=== PATIENT | female | born 1940 | race Caucasian/White ===

== ENCOUNTER 2020-07-01 21:30 | Inpatient (IN) | payer MEDICARE, BC ==
--- NOTE | 2020-07-01 20:45 | NUR ---
PATIENT ARRIVED TO [facility] VIA WHEELCHAIR PER TOMY SIMON. DX: DEMENTIA WITH BEHAVIORAL DISTURBANCES. SHE IS 79 YEAR OLD CAUCASION FEMALE WHO IS CALM AND PLEASANT WITH CONFUSION NOTED. CODE STATUS= DNR CODE WORD= 0793. SHE AMBULATES WITH ASSISTANCE ONLY. GRANDDAUGHTER CALLED REGARDING ADMISSION AND HISTORY OBTAINED. SHE WAS GIVEN THE PATIENT'S CODE WORD. SHE IS INCONTINENT OF BLADDER BUT NOT BOWEL.
[2020-07-01] MEDS ORDERED: ARAVA10 MG PO (22:36)
[2020-07-01] MEDS ORDERED: CELEXA10 MG PO (22:37)
[2020-07-01] MEDS ORDERED: CENTRUM SILVER1 EAC3 (22:39)
[2020-07-01] MEDS ORDERED: PREVALITE POWD231 GM (22:40)
[2020-07-01] MEDS ORDERED: PLAVIX75 MG PO (22:45)
[2020-07-01] MEDS ORDERED: DONEPEZIL HCL10 MG PO (22:51)
[2020-07-01] MEDS ORDERED: REMERON15 MG PO (22:52)
[2020-07-01] MEDS ORDERED: MELATONIN 3 MG1 TAB PO (22:52)
[2020-07-01] MEDS ORDERED: K-DUR20 MEQ PO (22:53)
[2020-07-01] MEDS ORDERED: COLACE100 MG PO (22:54)
[2020-07-01] MEDS ORDERED: CRESTOR5 MG PO (22:54)
[2020-07-01] MEDS ORDERED: FUROSEMIDE20 MG (22:55)
[2020-07-01] MEDS ORDERED: NAMENDA5 MG PO (22:55)
[2020-07-01] MEDS ORDERED: METFORMIN HCL500 M1 (22:56)
[2020-07-01] MEDS ORDERED: ULTRAM50 MG PO (22:58)
[2020-07-01] MEDS ORDERED: KLONOPIN0.5 MG PO (22:59)
[2020-07-01 23:17] VITALS: BP 114/90
[2020-07-02 07:02] LABS: BASOPHILS 0.5 % (0-2); EOSINOPHILS 3.1 % (0-7); HEMATOCRIT 38.6 % (36.0-48.0); HEMOGLOBIN 12.8 g/dL (12-16); LYMPHOCYTES 22.9 % (15-50); MCH 28.6 pg (26.0-34.0); MCHC 33.2 g/dL (31.0-37.0); MCV 86.4 fL (80.0-100.0); MEAN PLATELET VOLUME 11.9 fL (7.4-10.4); MONOCYTES 8.4 % (2-11); NEUTROPHILS 65.1 % (40-80); PLATELET COUNT 185 10x3/uL (130-400); RBC 4.47 10x6/uL (4.00-5.40); WBC 5.7 10x3/uL (4.8-10.8)
[2020-07-02 07:37] LABS: ALBUMIN 3.2 g/dL (3.4-5.0); ANION GAP 11.2 mmol/L (8-16); BILIRUBIN - TOTAL 0.58 mg/dL (0.2-1.3); CALCIUM 8.8 mg/dL (8.5-10.1); CARBON DIOXIDE 31.9 mmol/L (21.0-32.0); CREATININE - SERUM 0.9 mg/dL (0.6-1.3); POTASSIUM - SERUM 3.1 mmol/L (3.5-5.1); PROTEIN - SERUM 5.5 g/dL (6.4-8.2); THYROID STIMULATING HORMONE 3.47 uIU/mL (0.36-3.74)
[2020-07-02 11:19] VITALS: BP 122/71
[2020-07-02 13:33] VITALS: Wt 83.2 kg
--- NOTE | 2020-07-02 14:26 | NUR ---
VERY CONFUSED AND ARGUMENTIVE.REFUSED ALL MEDS THIS AM EXCEPT FOR POTASSIUM.AMBULATED 20FEET WITH PHYSICAL THERAPY TODAY,PROPELLS SELF IN WHEELCHAIR.WILL CONTINUE WITH CURRENT PLAN OF CARE,MONITOR FOR CHANGES AND SAFETY.
[2020-07-02 20:09] VITALS: BP 102/60
--- NOTE | 2020-07-02 23:36 | NUR ---
B) Luis Armando is alert and oriented to person, very negative outlook, stated that she would take her medications but would probally anyway, I) Administered scheduled redirected as needed, R) Mediation compliant, quiet and keeps to herself P) Continue plan of care.
[2020-07-03 06:11] LABS: RAPID PLASMA REAGIN Non Reactive (Non Reactive)
--- NOTE | 2020-07-03 12:13 | NUR ---
The patient is so confused. She is tearful and she is crying. Asked her if she would like something to help her nerves she said "Yes, I think so." By the time this nurse got her an ativan 0.5 mg po and offered her a lemon bois forte drink she said she did not want a lemon bois forte, she also said "Well, too bad so sad, I'll leave it." Explained to her that "No, you can have a diet cola." She wanted to argue and then she refused to take her by mout ativan and slapped it out of the cup. Provided her ativan 0.5 mg IM in her right deltoid as she is getting anxious and irritable and demanding. She is telling staff that she is allergic to water and can not drink it. The patient want to goad staff into arguing. She was compliant with am meds and she self propels in a w/c. She has poor insight into her situation. She knows her name and where she is located. 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 Tried to explain that she should calm herself. She said "Well, I won't be calm with you around." Left from her presence so she can relax and let the ativan calm her. Continue POC.
--- NOTE | 2020-07-03 12:57 | PSY ---
PATIENT NAME:TIGIST BEE MEDICAL RECORD: [id number] : 42 LOCATION:[facility] ADMISSION DATE: 07/01/20 ACCOUNT: [id number] PSYCHIATRIC EVALUATION DATE OF EVALUATION: 07/02/20 IDENTIFYING DATA: The patient is 79 years old and she is admitted to the hospital on a voluntary basis. CHIEF COMPLAINT: Agitation. HISTORY OF PRESENT ILLNESS: The patient has a history of vascular dementia. She recently broke her hip and had surgery. Since then, her condition has worsened. She has been in the [facility] where she has been confused, agitated, and throwing things. She has been pulling out dresser drawers and throwing things on the floor. She flipped the bedside table over. She is very angry and uncooperative, but when I speak with her, she is clearly mad, but denies any behaviors. PAST MEDICAL HISTORY: Significant for diabetes, hypertension, atrial fibrillation, and hypothyroidism. PAST PSYCHIATRIC HISTORY: Significant for an established diagnosis of dementia. FAMILY HISTORY: Unknown. ALLERGIES: PENICILLIN. CURRENT MEDICATIONS: Include Celexa, Plavix, Aricept, melatonin, Remeron, Crestor, Colace, Namenda, Ultram and Klonopin. SOCIAL HISTORY: The patient does not drink or use recreational drugs. 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 She does have one son who is involved with her care. MENTAL STATUS EXAMINATION: The patient is awake, alert and oriented to person and place, but not to time or situation. Her mood is flat. Her affect is constricted. Thought processes are circumstantial. Memory, concentration, and abstraction abilities are impaired. She denies that she would seek to harm herself or others as well as psychotic symptoms. ASSESSMENT: AXIS I: Major vascular neurocognitive disorder. AXIS II: None. AXIS III: Recent hip fracture, hypertension, hyperlipidemia, diabetes, atrial fibrillation, chronic kidney disease, hypothyroidism, gastroesophageal reflux disease, cervical spine stenosis. AXIS IV: Moderate. AXIS V: Global assessment of functioning is 30. PLAN: At this time, the patient is admitted to the hospital secondary to agitated behavior at the [facility]. She will be comprehensively evaluated from both a medical, psychological, and social standpoint. She will be treated with mood stabilizing and memory enhancing medications as deemed appropriate. TRANSINT:[id number] Voice Confirmation ID: [id number] DOCUMENT ID: [id number] TAMI MANJARREZ MD at 1257 CC: [id number] DICTATION DATE: 07/02/20 1725 STILL OPERATOR BATCH OR CONTINUOUS: 07/02/20 2230 ADM IN [place] [id number] [place] [id number]
--- NOTE | 2020-07-03 13:11 | NUR ---
The patient is not showing anxiety at this time she is resting with her eyes closed in the day room.
--- NOTE | 2020-07-03 16:11 | NUR ---
The patient is tearful and she is labile in affect, she says she is nervous all the time and that I should be too. Asked her if she would like some bottled water from the kitchen as she told Marcy Adams APN that she wished she had her water from home. The patient said "No, I don't trust it unless it's from my house because I have seen the old switch a miriam." The patient declined the water, she wants diet coke only. She is very anxious, provided her ativan 0.5 mg po. Will monitor.
[2020-07-03 16:17] VITALS: BP 149/74
--- NOTE | 2020-07-03 17:00 | NUR ---
The patient is tearful and she is unhappy, but staff have offered her a blanket, offered her a recliner, but she is confused and sundowning. She is answering conversations that do not pertain to her. She said "I can't drive, so I don't know." Then she looks around suspiciously and mumbles some things.
--- NOTE | 2020-07-03 17:53 | NUR ---
The patient is in the day room and she is getting upset, she is getting nauseated and gagging. Took her into the dining room and provided her a cup to spit up in. She was not too keen that she did not have someone with her.
[2020-07-03 19:57] VITALS: BP 132/106
--- NOTE | 2020-07-03 22:49 | NUR ---
B.) PT IS ALERT AND ORIENTED TO SELF ONLY. SHE IS RECEIVED IN THE DAYROOM CRYING ABOUT NOT HAVING A CELL PHONE. SHE RELATES THAT NOONE KNOWS WHERE SHE IS AND SHE IS NEVER GOING TO LEAVE HERE. SHE IS SELF ISOLATING AND WITHDRAWN. I.) PROVIDED PM MEDICATIONS PRESCRIBED. REDIRECT OFTEN. R.) COMPLIANT WILL ALL MEDICATIONS. DIFFICULT TO REDIRECT. P.) WILL CONTINUE TO MONITOR.
[2020-07-04 10:10] VITALS: BP 128/65
--- NOTE | 2020-07-04 12:31 | NUR ---
The patient is very anxious and tearful, she interrupts others conversations to say things that are not pertinent to the conversation. Provided Ativan 0.5 mg and Haldol 2 mg po for anxiety. Also gave her a diet cola, but she took one sip and she said "What's that gree stuff in there?" She refused to drink it, she is paranoid and believes people are trying to harm her. She also refused to eat lunch. Continue POC.
--- NOTE | 2020-07-04 15:01 | NUR ---
The patient is continuing to have bizarre behavior. She is attention seeking, demanding, and intrusive, in addition to having poor insight to her situation, she can be terse, yvon, and rude. If staff provide her medication she says "Well, I guess I have to whether I like it or not, I just don't have a choice." The patient is in a w/c, she typically ambulates, but she is unsteady. She has not mastered self propelling yet in the w/c. Provide prescribed meds. The patient is compliant with meds. At this time she is sticking her fingers down her throat to make herself try to vomit. She is removed from the other patients and she is being watched to ensure she remains safe. Continue POC.
--- NOTE | 2020-07-04 15:44 | NUR ---
The patient is becoming anxious, she is tearful and unable to self propel so she is getting frustrated. Provided Ativan 0.5 mg and Haldol 2 mg po with a diet cola. Will monitor her behavior.
[2020-07-04 20:00] VITALS: BP 128/72
--- NOTE | 2020-07-04 21:26 | NUR ---
B.) PT IS ALERT AND ORIENTED TO SELF ONLY. SHE HAS POOR INSIGHT INTO HER SITUATION. SHE IS ANXIOUS AND RELATES THAT SHE IS CONCERNED THAT SHE COULDNT GET ADMITED TO THE HOSPITAL LAST NIGHT. SHE RELATES THAT SHE IS ALERGIC TO WATER. SHE IS DEMANDING AND NEEDY. I.) PROVIDED PM MEDICATIONS AND PRN ATIVAN 0.5 MG IM. REDIRECT OFTEN. R.) COMPLIANT WITH HER MEDICATIONS. DIFFICULT TO REDIRECT. P.) WILL CONTINUE TO MONITOR.
--- NOTE | 2020-07-04 22:45 | NUR ---
PT IS RESTING CALMLY IN HER BED WITH EYES CLOSED. NO DISTRESS NOTED. WILL CONTINUE TO MONITOR.
--- NOTE | 2020-07-04 23:42 | NUR ---
STAFF ALERTED NURSES TO DIARRHEA AND ALSO SOME ITEM FOUND IN PTS LOOSE STOOL. UNIDENTIFIED OBJECT. PT UNSURE WHAT IT IS. ADMINSTERED PRN IMODIUM. WILL CONTINUE TO MONITOR.
[2020-07-05 09:09] VITALS: BP 109/79
--- NOTE | 2020-07-05 11:07 | NUR ---
The patient is anxious, some of the other patients are too loud and she is tearful then she cries. She asked to go to the br to have a BM, took one time and she did not have a loose stool, but just now took her and she had a loose BM, provided ativan 0.5 mg po and Immodium, see MAR. Monitor behavior and bowel movements.
[2020-07-05 20:00] VITALS: BP 115/67
--- NOTE | 2020-07-05 20:01 | NUR ---
PT IS RESTLESS AND CONFUSED AT TIMES. DIFFICULT TO REDIRECT. ADMINISITERED PO ATIVAN FOR ANXIETY. WILL CONTINUE TO MONITOR.
--- NOTE | 2020-07-05 20:11 | NUR ---
RECEIVED IN DAYROOM. SITTING IN A CHAIR WITH PEERS AT HER SIDE. CALM AND COOPERATIVE WITH CARE AND ASSESSMENT. ENCOURAGE TO EXPRESS NEEDS. REDIRECT AND REORIENT NEEDED. CONTINUES TO SIT CALMLY IN DAYROOM. CONTINUE PLAN OF CARE.
--- NOTE | 2020-07-05 20:45 | NUR ---
PT IS SITTING CALMLY IN A GERICHAIR. NO DISTRESS NOTED. WILL CONTINUE TO MONITOR.
--- NOTE | 2020-07-05 22:30 | NUR ---
PT BITING, SCRATCHING AND SCREAMING AT STAFF. UNABLE TO REDIRECT. ADMINISTERED PRN HALDOL AND ATIVAN IM. WILL CONTINUE TO MONITOR.
[2020-07-06 02:52] LABS: NITRITE NEGATIVE (NEGATIVE)
[2020-07-06 02:53] LABS: BILIRUBIN NEGATIVE (NEGATIVE); KETONE NEGATIVE (NEGATIVE); UROBILINOGEN NORMAL (NORMAL)
[2020-07-06 02:55] LABS: BACTERIA FEW /hpf (NEGATIVE); EPITHELIAL CELLS 0-5 /hpf (0-5); WHITE CELLS - URINE 0-5 /hpf (NEGATIVE)
[2020-07-06 09:07] VITALS: BP 98/52
--- NOTE | 2020-07-06 14:31 | NUR ---
Nutrition Follow-up: Overall poor appetite/PO intake. Diet: Diabetic PO intake: 9% avg x 9 meals Wt: 176# (07/05); 176# (07/02) Last BM: 07/05 Labs noted: Glu 112 Meds noted: Imodium, KDur, Glucophage -Encourage PO intake and honor food preferences within diet restrictions. -+Glucerna with meals. -Monitor wt. -RD following.
--- NOTE | 2020-07-06 17:58 | NUR ---
PT IS AWAKE AND ALERT TO PERSON ONLY. ASSESSMENT COMPLETED. PRESCRIBED MEDS PROVIDED ORDERED. MED COMPLIANT. PT IS YELLING AT THIS TIME. REDIRECT AND REORIENT NEEDED. FALL PRECAUTIONS IN PLACE. WILL CPOC.
--- NOTE | 2020-07-06 19:55 | NUR ---
RECEIVED IN DAYROOM. SITTING IN A CHAIR WITH PEERS AT HER SIDE. CALM AND COOPERATIVE WITH CARE AND ASSESSMENT. CONFUSED. REDIRECT AND REORIENT NEEDED. CONTINUES TO SIT CALMLY IN DAYROOM. CONTINUE PLAN OF CARE.
[2020-07-06 20:12] VITALS: BP 124/55
--- NOTE | 2020-07-07 03:54 | NUR ---
TYLENOL 650 MG X 2 GIVEN PO FOR LEVEL #10 HIP PAIN.
[2020-07-07 09:45] VITALS: BP 147/69
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
[2020-07-07 12:17] LABS: BASOPHILS 0.2 % (0-2); EOSINOPHILS 1.3 % (0-7); HEMATOCRIT 45.2 % (36.0-48.0); HEMOGLOBIN 14.8 g/dL (12-16); IMMATURE GRANULOCYTES 0.2 % (0-5); LYMPHOCYTES 12.9 % (15-50); MCH 28.7 pg (26.0-34.0); MCHC 32.7 g/dL (31.0-37.0); MCV 87.6 fL (80.0-100.0); MEAN PLATELET VOLUME 11.8 fL (7.4-10.4); MONOCYTES 6.1 % (2-11); NEUTROPHILS 79.3 % (40-80); RBC 5.16 10x6/uL (4.00-5.40); RDW 14.6 % (11.5-14.5); WBC 12.5 10x3/uL (4.8-10.8)
[2020-07-07 12:18] LABS: PLATELET COUNT 269 10x3/uL (130-400)
--- NOTE | 2020-07-07 12:24 | NUR ---
PT REPORTED SORE THROAT AND BODY ACHES. COVID 19 ORDERED PER [facility] PT PLACED IN DROPLET ISOLATION PER [facility]. COVID TEST COLLECTED PER ORDER. RESULTS PENDING. PT RESTING IN BED WITH EYES OPEN. ASSESSMENT COMPLETED. PRESCRIBED MEDS PROVIDED ORDERED. PT REFUSED MORNING MEDS X 3. REDIRECT AND REORIENT NEEDED. PT CAN BE VERY AGGRESSIVE WITH STAFF UPON REDIRECTION AT TIMES. FALL PRECAUTIONS IN PLACE. STAFF PRESENT FOR SAFETY. WILL CPOC.
[2020-07-07 12:37] LABS: ALBUMIN 3.8 g/dL (3.4-5.0); ANION GAP 18.1 mmol/L (8-16); BILIRUBIN - TOTAL 0.87 mg/dL (0.2-1.3); CALCIUM 9.4 mg/dL (8.5-10.1); CARBON DIOXIDE 23.5 mmol/L (21.0-32.0); CREATININE - SERUM 1.3 mg/dL (0.6-1.3); POTASSIUM - SERUM 3.6 mmol/L (3.5-5.1); PROTEIN - SERUM 6.5 g/dL (6.4-8.2)
[2020-07-07 20:43] VITALS: BP 116/54
--- NOTE | 2020-07-08 01:40 | NUR ---
INCREASING ANXIETY, YELLING OUT. RESTLESS IN BED. PRN ATIVAN 0.5 MG IM GIVEN FOR ANXIETY.
--- NOTE | 2020-07-08 03:07 | NUR ---
CONTINUES TO YELL OUT AT TIMES.
--- NOTE | 2020-07-08 08:20 | NUR ---
REC'D PT IN ROOM RESTING IN RECLINING CHAIR. PT YELLS OUT FOR NO REASON. PT VERY DIFFICULT TO REDIRECT AT TIMES. PT CAN BECOME COMBATIVE WITH STAFF UPON REDIRECTION. ASSESSMENT COMPLETED. PT CONTINUED ON DROPLET ISOLATION FOR PENDING COVID RESULTS. STAFF PRESENT FOR SAFETY. REDIRECT AND REORIENT NEEDED. PRESCRIBED MEDS PROVIDED ORDERED. FALL PRECAUTIONS IN PLACE. WILL CPOC.
--- NOTE | 2020-07-08 14:35 | PN ---
PATIENT:TIGIST BEE MEDICAL RECORD: [id number] LOCATION:[facility] ADMISSION DATE: 07/01/20 PROGRESS NOTE DATE OF SERVICE: 07/07/2020 SUBJECTIVE: The patient's case was discussed with staff. She has no new complaint. OBJECTIVE: The patient is impaired cognitively, but her behaviors have been good. Unfortunately, she is not eating adequately, but she is also showing signs of a viral infection. ASSESSMENT: Dementia. PLAN: The patient is being isolated and COVID testing results are pending. At this point, I am just going to maintain her on her current medications and we will reassess the situation after the COVID results return. TRANSINT:[id number] Voice Confirmation ID: [id number] DOCUMENT ID: [id number] TAMI MANJARREZ MD at 1435 CC: [id number] DICTATION DATE: 07/07/20 1540 TRAVEL INFORMATION CENTER SUPERVISOR: 07/07/20 2352 ADM IN [place] [id number] [place] [id number]
--- NOTE | 2020-07-08 15:10 | NUR ---
NUTRITION FOLLOW UP: COMMENTS: Patient has been eating poorly with po intake of 0% for 8 of the last 9 meals. DIET: Diabetic Diet SUPPLEMENT: Glucerna with meals PO INTAKE: 6% avg for last 9 meals WEIGHT: 07/05- 176 lbs BM: x 1 on 07/07 SIG MEDS: Imodium, Humalog, Crestor SIG LABS: BUN-25(H), POC Glucose- 135, 119, 112, 132 RECOMMENDATIONS -Continue DM diet as tolerated -Continue Glucerna with meals -Recommend appetite stimulant if poor po intake and appetite continues RD to continue to follow and monitor patient DHS
--- NOTE | 2020-07-08 20:00 | NUR ---
RECEIVED IN DAYROOM, RESTING IN RECLINER. CONTINUES TO BE RESTLESS AND ANXIOUS, CRIES AND MOANS OUT. SHE IS STILL VERY CONFUSED. CALM AND COOPERATIVE WITH CARE AND ASSESSMENT. REDIRECT AND REORIENT NEEDED. ADMINISTERED SCHEDULED MEDICATIONS. COMPLIANT WITH MEDICATIONS. CONTINUE POC.
[2020-07-08 20:37] VITALS: BP 127/67
[2020-07-09 09:22] VITALS: BP 127/56
[2020-07-09 10:24] LABS: BASOPHILS 0.2 % (0-2); EOSINOPHILS 0.7 % (0-7); HEMATOCRIT 39.6 % (36.0-48.0); HEMOGLOBIN 12.8 g/dL (12-16); IMMATURE GRANULOCYTES 0.2 % (0-5); LYMPHOCYTES 8.9 % (15-50); MCH 28.5 pg (26.0-34.0); MCHC 32.3 g/dL (31.0-37.0); MCV 88.2 fL (80.0-100.0); MEAN PLATELET VOLUME 11.9 fL (7.4-10.4); MONOCYTES 7.7 % (2-11); NEUTROPHILS 82.3 % (40-80); RBC 4.49 10x6/uL (4.00-5.40); RDW 14.6 % (11.5-14.5)
[2020-07-09 10:29] LABS: PLATELET COUNT 168 10x3/uL (130-400)
--- NOTE | 2020-07-09 12:16 | PN ---
PATIENT:TIGIST BEE MEDICAL RECORD: [id number] LOCATION:[facility] ADMISSION DATE: 07/01/20 PROGRESS NOTE DATE OF SERVICE: 07/08/2020 SUBJECTIVE: The patient's case was discussed with staff. She has no new complaint. OBJECTIVE: The patient is tearful for reasons that are unclear. She is frightened and upset. She is not having any suicidal thoughts, but she is displaying a high degree of distress with a low degree of specificity. She did require an injection last night because of her anxiety. I am going to change her from Zyprexa to Seroquel and will give her scheduled doses of this to assist with her distress. TRANSINT:[id number] Voice Confirmation ID: [id number] DOCUMENT ID: [id number] TAMI MANJARREZ MD at 1216 CC: [id number] DICTATION DATE: 07/08/20 1515 TOOL ANALYST: 07/09/20 0029 ADM IN [place] [id number] [place] [address]
--- NOTE | 2020-07-09 17:05 | PN ---
PATIENT:TIGIST BEE MEDICAL RECORD: [id number] LOCATION:[facility] ADMISSION DATE: 07/01/20 PROGRESS NOTE DATE OF SERVICE: 07/09/2020 SUBJECTIVE: The patient's case was discussed with staff. She has no new complaint. OBJECTIVE: The patient denies that she would seek to harm herself or others. She is partially oriented. ASSESSMENT: Dementia. PLAN: The patient is calmer today. I will observe her dose of Seroquel to ensure that she does not become oversedated, but so far it seems to be working well. TRANSINT:[id number] Voice Confirmation ID: [id number] DOCUMENT ID: [id number] TAMI MANJARREZ MD at 1705 CC: [id number] DICTATION DATE: 07/09/20 1251 CHIEF INFORMATION OFFICER: 07/09/20 1625 ADM IN [place] [id number] [place] [id number]
[2020-07-09 20:32] VITALS: BP 124/55
--- NOTE | 2020-07-09 22:17 | NUR ---
RECEIVED PATIENT IN DAYROOM, SITTING TO HERSELF, SHE IS VERY CONFUSED, ABLE TO STATE ALL OF HER NEEDS AND CONCERNS, COMPLIANT WITH MEDS, NO ADVERSE REACTION OR SIDE EFFECTS NOTED FROM MEDS. WILL FOLLOW POC
[2020-07-10 08:52] VITALS: BP 142/77
--- NOTE | 2020-07-10 10:02 | NUR ---
PT SITTING IN CHAIR IN DAYROOM AT THIS TIME. PT IS ALERT AND ORIENTED. DENIES SI AT THIS TIME. PT IS COMPLIANT WITH MEDS, VITALS AND ASSESSMENTS. PT ANXIOUS AT TIMES. PT TENDS TO ISOLATE SELF AT TIMES. PT CAN MAKE NEEDS KNOWN. PT IS INDEPENDENT WITH ADLS. WILL CONT PLAN OF CARE.
[2020-07-10 20:00] VITALS: BP 118/56
--- NOTE | 2020-07-10 20:16 | NUR ---
RECEIVED PATIENT IN DAYROOM SITTING IN WHEELCHAIR CALMLY, SHE IS CONFUSED ALWAYS, SHE IS COMPLIANT WITH HER MEDS, SHE CAN MAKE NEEDS KNOWN, NO ADVERSE REACTION NOTED TO MEDS OR SIDE EFFECTS. WILL FOLLOW POC
[2020-07-11 09:12] VITALS: BP 134/74
--- NOTE | 2020-07-11 16:18 | NUR ---
RECEIVED THIS AM IN RECLINER.IS ORIENTED TO SELF.VERY POOR SHORT TERM MEMORY. COMPLIANT WITH STAFF AND MEDS.REQUIRES ASSIST WITH BATHROOM NEEDS AND DRESSING.WILL CONTINUE WITH CURRENT PLAN OF CARE,MONITOR FOR CHANGES AND SAFETY.
[2020-07-11 19:34] VITALS: BP 122/50
--- NOTE | 2020-07-11 19:55 | NUR ---
RECEIVED PATIENT IN DAYROOM, CALM, CONFUSED, SHE HAS BEEN CONFUSED. SHE CAN MAKE HER NEEDS KNOWN. SHE IS LABILE. WILL FOLLOW POC
[2020-07-12 09:28] VITALS: BP 146/83
--- NOTE | 2020-07-12 12:00 | NUR ---
RECEIVED IN HALLWAY OUTSIDE OF NURSES STATION. CALM AND COOPERATIVE WITH CARE AND ASSESSMENT. NO AGGRESSION. REDIRECT AND REORIENT NEEDED. EATING AT THIS TIME. CONTINUE PLAN OF CARE.
[2020-07-12 18:57] VITALS: BP 141/74
--- NOTE | 2020-07-12 19:43 | NUR ---
RECEIVED IN BEDROOM. RESTING IN BED WITH EYES CLOSED. CALM AND COOPERATIVE WITH CARE AND ASSESSMENT. NO SIGNS OF AGGRESSION. REDIRECT AND REORIENT NEEDED. RESTING IN BED WITH EYES CLOSED AT THIS TIME. CONTINUE PLAN OF CARE.
[2020-07-13 08:34] VITALS: BP 150/87
--- NOTE | 2020-07-13 15:23 | NUR ---
RECEIVED IN HALLWAY OUTSIDE OF NURSES STATION. CALM AND COOPERATIVE WITH CARE AND ASSESSMENT. NO AGGRESSIVE BEHAVIOR. REDIRECT AND REORIENT NEEDED. PARTICIPATING IN GROUP AT THIS TIME. CONTINUE PLAN OF CARE.
[2020-07-13 19:39] VITALS: BP 139/59
--- NOTE | 2020-07-13 19:45 | NUR ---
RECEIVED IN DAYROOM. SITTING IN A CHAIR WITH PEERS AT HER SIDE. NO SIGNS OF AGGRESSION OR PARANOIA. CALM AND COOPERATIVE WITH CARE AND ASSESSMENT. REDIRECT AND REORIENT NEEDED. CONTINUES TO SIT CALMLY IN DAYROOM. CONTINUE PLAN OF CARE.
--- NOTE | 2020-07-13 20:08 | PN ---
PATIENT:TIGIST BEE MEDICAL RECORD: [id number] LOCATION:[facility] ADMISSION DATE: 07/01/20 PROGRESS NOTE DATE OF SERVICE: 07/13/2020 SUBJECTIVE: The patient's case was discussed with staff. She has no new complaint. OBJECTIVE: The patient is in good behavioral control. She has poor insight about her situation. She does tolerate her medicines well. ASSESSMENT: Dementia. PLAN: Current medicines have been reviewed and will be maintained. Long-term prognosis is guarded. I anticipate she can be transitioned out of the hospital soon. TRANSINT:[id number] Voice Confirmation ID: [id number] DOCUMENT ID: [id number] TAMI MANJARREZ MD at 2008 CC: [id number] DICTATION DATE: 07/13/20 1500 CHIEF MEDICAL TECHNOLOGIST: 07/13/20 1652 ADM IN [place] [id number] [place] [address]
[2020-07-14 09:30] VITALS: BP 131/83
--- NOTE | 2020-07-14 12:00 | NUR ---
RECEIVED IN HALLWAY OUTSIDE OF NURSES STATION. CALM AND COOPERATIVE WITH CARE AND ASSESSMENT. NO AGGRESSIVE BEHAVIOR. NO PARANOIA. REDIRECT AND REORIENT NEEDED. EATING AT THIS TIME. CONTINUE PLAN OF CARE.
--- NOTE | 2020-07-14 20:54 | NUR ---
RECEIVED IN DAYROOM. SITTING IN A CHAIR WITH PEERS AT HER SIDE. CALM AND COOPERATIVE WITH CARE AND ASSESSMENT. NO SIGNS OF AGGRESSION AT THIS TIME. REDIRECT AND REORIENT NEEDED. CONTINUES TO SIT CALMLY IN DAYROOM. CONTINUE PLAN OF CARE.
[2020-07-14 21:55] VITALS: BP 148/55
--- NOTE | 2020-07-15 08:33 | PN ---
PATIENT:TIGIST BEE MEDICAL RECORD: [id number] LOCATION:[facility] ADMISSION DATE: 07/01/20 PROGRESS NOTE DATE OF SERVICE: 07/14/2020 SUBJECTIVE: The patient's case was discussed with staff. She has no new complaint. OBJECTIVE: The patient is in good behavioral control with no disruptive behaviors today. She is eating and sleeping well. ASSESSMENT: Dementia. PLAN: If this level of improvement continues, I anticipate she can be transitioned out of the hospital soon. TRANSINT:[id number] Voice Confirmation ID: [id number] DOCUMENT ID: [id number] TAMI MANJARREZ MD at 0833 CC: [id number] DICTATION DATE: 07/14/20 1521 CHILDREN'S ATTENDANT: 07/15/20 0148 ADM IN [place] [id number] [place] [address]
[2020-07-15 10:30] VITALS: BP 140/62
--- NOTE | 2020-07-15 14:51 | NUR ---
Nutrition Follow-up: Diet: Regular + Glucerna TID PO intake: ~79% average x last 9 meals Last BM: 07/15/20. Wt: 180# (07/12/20); Admit Wt: 176# (07/02/20) Meds noted: micro-K, SSI. Labs noted: POC Glu 168(H) Chart reviewed. Noted Diabetic diet was "canceled as per physician" and replaced by a Regular diet on 07/11/20. Continue PO diet per MD. Recommend continue Glucerna TID. RD following.
--- NOTE | 2020-07-15 17:49 | NUR ---
ORIENTED TO PERSON.COMPLIANT WITH STAFF AND MEDS.PROPELLS SELF IN WHEELCHAIR.NO AGGRESSION OBSERVED BUT IS VERY CONFUSED.WIILL CONTINUE WITH CURRENT PLAN OF CARE,MONITOR FOR CHANGES AND SAFETY.
--- NOTE | 2020-07-15 18:10 | NUR ---
SPOKE WITH PTS . PASSCODE GIVEN. HE WANTED TO KNOW HOW SHE WAS DOING AND IF HE COULD COME VISIT OR WOULD IT UPSET HER. NURSE TOLD HIM SHE WAS DOING OKAY STILL CONFUSED. NURSE RECOMMANDED THAT HE CALL BEFORE HE VISITS SO HE COULD SEE WHAT KIND OF MOOD SHE WAS IN. HE VERBALIZED UNDERSTANDING.
[2020-07-15 20:38] VITALS: BP 136/69
--- NOTE | 2020-07-15 21:44 | NUR ---
RECEIVED PATIENT IN DAYROOM, TALKING ON PHONE, CONFUSED, COMPLIANT WITH MEDS, NEEDS MOD ASSIST GETTING INTO BED. PLEASANT, WILL FOLLOW POC
[2020-07-16 08:16] VITALS: BP 160/86
--- NOTE | 2020-07-16 15:23 | PN ---
PATIENT:TIGIST BEE MEDICAL RECORD: [id number] LOCATION:[facility] ADMISSION DATE: 07/01/20 PROGRESS NOTE DATE OF SERVICE: 07/15/2020 SUBJECTIVE: The patient's case was discussed with staff. She has no new complaint. OBJECTIVE: The patient is not sleeping well. She has been very tearful. She has had no significant agitation. ASSESSMENT: No change in diagnoses. PLAN: The patient is going to be treated with a low dose of Klonopin to assist with her anxiety. I will increase the dose of her Zoloft as well. TRANSINT:[id number] Voice Confirmation ID: [id number] DOCUMENT ID: [id number] TAMI MANJARREZ MD at 1523 CC: [id number] DICTATION DATE: 07/15/20 1631 REIMBURSEMENT REP: 07/16/20 [id number] ADM IN [facility] [address] [place] [address]
--- NOTE | 2020-07-16 17:01 | NUR ---
ORIENTED TO SELF ONLY,VERY CONFUSED.COMPLIANT WITH STAFF AND MEDS.PROPELLS SELF IN WHEELCHAIR.WILL CONTINUE WITH CURRENT PLAN OF CARE,MONITOR FOR CHANGES AND SAFETY.
[2020-07-16 19:38] VITALS: BP 106/50
--- NOTE | 2020-07-17 00:28 | NUR ---
B) Patient is alert and oriented to self, very confused, I) Administered cheduled medications as ordered, monitored for safety and changes, R) Mediation compliant, resting quietly P) Continue plan of care.
--- NOTE | 2020-07-17 07:34 | NUR ---
The patient is sleeping this am, she is pleasant and calm. She is in a w/c and she can stand and transfer with assist. She has poor short term memory recall, and poor insight into her situation. Provide prescribed meds. The patient is compliant with meds. Continue POC.
--- NOTE | 2020-07-17 12:30 | PN ---
PATIENT:TIGIST BEE MEDICAL RECORD: [id number] LOCATION:[facility] ADMISSION DATE: 07/01/20 PROGRESS NOTE DATE OF SERVICE: 07/16/2020 SUBJECTIVE: The patient's case was discussed with staff. She has no new complaint. OBJECTIVE: The patient denies that she would seek to harm herself or others. She has been calm and cooperative. The Klonopin seems to have helped with her agitation. NTS:[id number] Voice Confirmation ID: [id number] DOCUMENT ID: [id number] TAMI MANJARREZ MD at 1230 CC: [id number] DICTATION DATE: 07/16/20 1620 WOOD FILLER: 07/16/202011 ADM IN [facility] [address] [place] [address]
[2020-07-17 12:44] VITALS: BP 149/73
[2020-07-17 20:00] VITALS: BP 144/64
--- NOTE | 2020-07-18 04:27 | NUR ---
B.) PT IS ALERT AND ORIENTED TO SELF AND AT TIMES PLACE. SHE HAS POOR INSIGHT INTO HER SITUATION. SHE RELATED TO ME THAT SHE IS JUST WAITING FOR HER TO PICK HER UP IN THE MORNING. SHE IS DEMANDING AT TIMES AND TEARFUL WHEN PEERS ARE AROUND. I.) PROVIDED PM MEDICATIONS PRESCRIBED. REDIRECT NEEDED. R.) COMPLIANT WITH ALL MEDICATIONS. EASY TO REDIRECT. P.) WILL CONTINUE TO MONITOR.
--- NOTE | 2020-07-18 08:49 | PN ---
PATIENT:TIGIST BEE MEDICAL RECORD: [id number] LOCATION:[facility] ADMISSION DATE: 07/01/20 PROGRESS NOTE DATE OF SERVICE: 07/17/2020 SUBJECTIVE: The patient's case was discussed with staff. She has no new complaint. OBJECTIVE: The patient is in good behavioral control and is showing no disruptive behaviors. Her cognition is significantly impaired. ASSESSMENT: Dementia. PLAN: The patient's Klonopin will be reduced to 0.25 mg twice daily. TRANSINT:[id number] Voice Confirmation ID: [id number] DOCUMENT ID: [id number] TAMI MANJARREZ MD at 0849 CC: [id number] DICTATION DATE: 07/17/20 1412 AUTOMOBILE REPAIR SERVICE ESTIMATOR: 07/17/20 2350 ADM IN [place] [id number]
--- NOTE | 2020-07-18 15:38 | NUR ---
The patient is a little confused today, she thought she knew another ladt from [place], but the lady is from [place], she then said she knew my sister and family, but we are not from here either. Provide prescribed meds. The patient is compliant with meds. She has poor short term memory recall and poor insight into her situation. She is not walking, she is using her w/c, but she can stand and help staff with transfers, no SI or HI. Continue POC.
[2020-07-18 19:57] VITALS: BP 115/67
--- NOTE | 2020-07-19 00:12 | NUR ---
B.) PT IS ALERT AND ORIENTED TO SELF ONLY. SHE IS CALM AND COOPERATIVE WITH STAFF. SHE IS INTERACTIVE AND RELATES THAT SHE MISSES HER GRANDCHILDREN DEARLY. SHE IS ABLE TO RECALL VERY IMPORTANT DETAILS OF HER GRANDCHILDREN. SHE USES A WHEEL CHAIR TO ASSIST WITH AMBULATION. I.) PROVIDED PM MEDICATIONS. REDIRECT NEEDED. R.) COMPLIANT WITH ALL MEDICATIONS. EASY TO REDIRECT, P.) WILL CONTINUE TO MONITOR.
--- NOTE | 2020-07-19 08:30 | NUR ---
The patient is pleasant, she is confused, she continues to call staff and patients by names that are not theirs, she believes she knows the people that she grew up with or that she went to school with she also believes she went to hindu with them. She is calm and cooperative, she has poor short term memory recall, she has poor insight into her situation. She can stand and help staff with transfers, but she is refusing to walk as she says she is too weak and she has requested to get PT also c/o yeast to her [place] area, will discuss with the today. She self propels in a w/c. Provide prescribed meds. The patient is compliant with meds. Continue POC.
[2020-07-19 10:15] VITALS: BP 153/85
--- NOTE | 2020-07-19 11:59 | PN ---
PATIENT:TIGIST BEE MEDICAL RECORD: [id number] LOCATION:[facility] ADMISSION DATE: 07/01/20 PROGRESS NOTE DATE OF SERVICE: 07/18/2020 SUBJECTIVE: The patient's case was discussed with staff. She has no new complaint. OBJECTIVE: The patient is impaired cognitively, but has had no paranoia or aggressive behavior. ASSESSMENT: Dementia. PLAN: With this level of improvement, continues transition the patient out of the hospital on Monday. TRANSINT:[id number] Voice Confirmation ID: [id number] DOCUMENT ID: [id number] TAMI MANJARREZ MD at 1159 CC: [id number] DICTATION DATE: 07/18/20 1445 CREDIT ASSISTANT: 07/18/20 2221 ADM IN [place] [id number] [place] [address]
[2020-07-19] MEDS ORDERED: FEXOFENADINE H180 MG PO (13:19)
[2020-07-19] MEDS ORDERED: LISINOPRIL5 MG PO (13:19)
[2020-07-19] MEDS ORDERED: ACETAMINOPHEN325 MG PO (13:19)
[2020-07-19] MEDS ORDERED: ELIQUIS2.5 MG PO (13:19)
[2020-07-19] MEDS ORDERED: DESERYL PO (13:20)
[2020-07-19] MEDS ORDERED: SEROQUEL25 MG PO ×2 (13:20)
[2020-07-19] MEDS ORDERED: ZOLOFT100 MG PO (13:20)
[2020-07-19] MEDS ORDERED: K-TAB10 MEQ PO (13:21)
[2020-07-19] MEDS ORDERED: KLONOPIN0.5 MG PO (13:21)
[2020-07-19] MEDS ORDERED: LIDODERM 5 %1 PATCH TRANSDERM (13:22)
[2020-07-19] MEDS ORDERED: FLUTICASONE PRO16 GM NASAL (13:22)
[2020-07-19] MEDS ORDERED: GYNE-LOTRIMIN-745 GM VG (13:22)
[2020-07-19] MEDS ORDERED: REMOVE PATCH TD (13:23)
--- NOTE | 2020-07-19 18:32 | NUR ---
The patient is anxious and she is very upset. She keeps saying "I am not taking a bath today, it will be number seven if I take another one." She is saying she wants to leave and we need to call the police. She has tried the doors and screamed. Ativan 0.5 mg IM provided, see MAR.
--- NOTE | 2020-07-19 20:13 | NUR ---
RECEIVED IN DAYROOM. SITTING IN A CHAIR WITH PEERS AT HER SIDE. CALM AND COOPERATIVE WITH CARE AND ASSESSMENT. NO SIGNS OF AGGRESSION. REDIRECT AND REORIENT NEEDED. CONTINUES TO SIT CALMLY IN DAYROOM. CONTINUE PLAN OF CARE.
[2020-07-19 20:41] VITALS: BP 143/78
--- NOTE | 2020-07-20 09:00 | PN ---
PATIENT:TIGIST BEE MEDICAL RECORD: [id number] LOCATION:[facility] ADMISSION DATE: 07/01/20 PROGRESS NOTE DATE OF SERVICE: 07/19/2020 SUBJECTIVE: The patient's case was discussed with staff. She has no new complaint. OBJECTIVE: The patient is in good behavioral control and has shown significant improvement. ASSESSMENT: Dementia. PLAN: The patient will be transitioned out of the hospital tomorrow and back to the [facility]. TRANSINT:[id number] Voice Confirmation ID: [id number] DOCUMENT ID: [id number] TAMI MANJARREZ MD at 0900 CC: [id number] DICTATION DATE: 07/19/20 1318 CLINICAL INFORMATICS STRATEGIST: 07/19/20 2142 ADM IN [place] [id number] [place] [address]
[2020-07-20 09:47] VITALS: BP 123/75
--- NOTE | 2020-07-20 15:49 | NUR ---
PT IS AWAKE AND ALERT TO PERSON ONLY. CALM AND COOPERATIVE WITH ASSESSMENT. PRESCRIBED MEDS PROVIDED ORDERED. MED COMPLIANT. NO BEHAVIORS NOTED. FALL PRECAUTIONS IN PLACE. WILL CPOC.
--- NOTE | 2020-07-20 19:17 | NUR ---
RECEIVED IN DAYROOM, MOVING ABOUT IN A WHEELCHAIR. CONFUSED. DEMANDING THAT SOMEONE TAKES HER HOME. NOTED ANXIETY. NO SIGNS OF AGGRESSION. REDIRECT AND REORIENT NEEDED. CONTINUES TO HAVE ANXIETY. CONTINUE PLAN OF CARE.
[2020-07-20 20:02] VITALS: BP 143/80
[2020-07-21 08:30] VITALS: BP 163/91
--- NOTE | 2020-07-21 11:11 | PN ---
PATIENT:TIGIST BEE MEDICAL RECORD: [id number] LOCATION:[facility] ADMISSION DATE: 07/01/20 PROGRESS NOTE DATE OF SERVICE: 07/20/2020 SUBJECTIVE: The patient's case was discussed with staff. She has no new complaint. OBJECTIVE: The patient has no aggressive behaviors or paranoia. She is very impaired cognitively. ASSESSMENT: Dementia. PLAN: The patient can be transitioned out of the hospital soon. I know arrangements need to be made for her to return to the prison in [place]. TRANSINT:[id number] Voice Confirmation ID: [id number] DOCUMENT ID: [id number] TAMI MANJARREZ MD at 1111 CC: [id number] DICTATION DATE: 07/20/20 1614 ASSEMBLY DETAILER: 07/21/20 0312 ADM IN [place] [id number] [place] [address]
--- NOTE | 2020-07-21 13:21 | NUR ---
PT IS SITTING ON COUCH SOCIALIZING WITH PEERS. ASSESSMENT COMPLETED. NO BEHAVIORS NOTED AT THIS TIME. PRESCRIBED MEDS PROVIDED ORDERED. MED COMPLIANT. REDIRECT AND REORIENT NEEDED. WILL CPOC.
--- NOTE | 2020-07-21 20:01 | NUR ---
RECEIVED IN DAYROOM. SITTING ON THE SOFA WITH PEERS AT HER SIDE. SOCIAL AT TIMES. CALM AND COOPERATIVE WITH CARE AND ASSESSMENT. NO SIGNS OF AGGRESSION OR PARANOIA. REDIRECT AND REORIENT NEEDED. CONTINUES TO SIT CALMLY IN DAYROOM. CONTINUE PLAN OF CARE.
[2020-07-21 20:20] VITALS: BP 132/60
--- NOTE | 2020-07-22 08:57 | PN ---
PATIENT:TIGIST BEE MEDICAL RECORD: [id number] LOCATION:[facility] ADMISSION DATE: 07/01/20 PROGRESS NOTE DATE OF SERVICE: 07/21/2020 SUBJECTIVE: The patient's case was discussed with staff. She has no new complaint. OBJECTIVE: The patient has evidence of significant confusion, but no evidence of acute or direct dangerousness or psychotic symptoms. ASSESSMENT: Dementia. PLAN: The patient will be transitioned out of the hospital as soon as placement can be arranged. TRANSINT:[id number] Voice Confirmation ID: [id number] DOCUMENT ID: [id number] TAMI MANJARREZ MD at 0857 CC: [id number] DICTATION DATE: 07/21/20 1517 EDGE BONDER: 07/21/20 2214 ADM IN [place] [id number] [place] [address]
--- NOTE | 2020-07-22 10:28 | NUR ---
PT IS AWAKE AND ALERT TO PERSON ONLY. CALM AND COOPERATIVE WITH ASSESSMENT. PRESCRIBED MEDS PROVIDED ORDERED. MED COMPLIANT. NO BEHAVIORS NOTED AT THIS TIME. REDIRECT AND REORIENT NEEDED. FALL PRECAUTIONS IN PLACE. WILL CPOC.
[2020-07-22 13:17] VITALS: BP 184/94
--- NOTE | 2020-07-22 13:50 | NUR ---
Nutrition Follow-up: Diet: Regular + Glucerna TID PO intake: ~85% average x last 9 meals Last BM: 07/22/20. Wt: 183# (07/19/20); Admit Wt: 176# (07/02/20) Meds noted: metformin, micro-k, SSI. Labs noted: POC Glu 145(H). Continue PO diet per MD. ESCOBAR following.
[2020-07-22 20:19] VITALS: BP 165/72
--- NOTE | 2020-07-23 02:39 | NUR ---
B.) PT IS ALERT AND ORIENTED TO SELF ONLY. SHE HAS POOR INSIGHT INTO HER SITUATION. SHE IS RECEIVED IN THE DAYROOM. SHE IS WITHDRAWN AT TIMES AND OBSERVED BEING TEARFUL WITH STAFF. SHE IS DEMANDING AND YELLING AT STAFF. SHE IS USING A WHEELCHAIR TO ASSIST WITH AMBULATION. I.) PROVIDED PM MEDICATIONS PRESCRIBED. REDIRECT OFTEN. R.) COMPLIANT WITH ALL MEDICATIONS. EASY TO REDIRECT. P.) WILL CONTINUE TO MONITOR.
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
[2020-07-23 09:39] VITALS: BP 175/107
--- NOTE | 2020-07-23 10:18 | PN ---
PATIENT:TIGIST BEE MEDICAL RECORD: [id number] LOCATION:[facility] ADMISSION DATE: 07/01/20 PROGRESS NOTE DATE OF SERVICE: 07/22/2020 SUBJECTIVE: The patient's case was discussed with staff. She has no new complaint. OBJECTIVE: The patient is in good behavioral control and has no disruptive behaviors that are noted. ASSESSMENT: Dementia. PLAN: The patient will be maintained on current medications, which have been reviewed. Her long-term prognosis is guarded. She may be transitioned out of the hospital as soon as arrangements are made. TRANSINT:[id number] Voice Confirmation ID: [id number] DOCUMENT ID: [id number] TAMI MANJARREZ MD at 1018 CC: [id number] DICTATION DATE: 07/22/20 1558 LATHMAKER: 07/22/202025 ADM IN [place] [id number] [place] [address]
[2020-07-23 20:07] VITALS: BP 150/68
--- NOTE | 2020-07-23 21:55 | NUR ---
RECEIVED PATIENT IN DAYROOM, SHE IS CONFUSED, LITTLE AGITATED BY THE NOISE IN THE DAYROOM, COMPLIANT WITH MEDS, SHE THINKS THAT SHE IN NOT IN A HOSPITAL RIGHT NOW AND THAT SHE IS WAITING FOR HER TO COME AND GET HER. SHE CAN MAKE HER NEEDS KNOWN. WILL FOLLOW POC
[2020-07-24 09:00] VITALS: BP 167/76
--- NOTE | 2020-07-24 11:00 | NUR ---
Obtained a specimen for COVID, sent to lab.
--- NOTE | 2020-07-24 12:29 | NUR ---
The patient is awake and alert, she has poor short term memory recall and poor insight into her situation. She says she is not able to walk, but staff are encouraging her to walk with assist. She says her legs buckle. Provide prescribed meds. The patient is compliant with meds. She has sat on the couch today and has fallen asleep. She says she does not sleep at night. She denies S.I., and H.I. Continue POC.
[2020-07-24 20:00] VITALS: BP 140/53
--- NOTE | 2020-07-24 22:08 | NUR ---
RECEIVED PATIENT IN DAYROOM, SITTING BESIDE OTHER PATIENTS, SHE IS CONFUSED, COMPLIANT WITH MEDS. COMPLIANT WITH MEDS, NO ADVERSE REACTIONS NOTED. MIN TO MOD CARE REQUIRED. WILL FOLLOW POC
[2020-07-25 09:18] VITALS: BP 143/92
--- NOTE | 2020-07-25 12:00 | NUR ---
RECEIVED IN HALLWAY OUTSIDE OF NURSES STATION. CALM AND COOPERATIVE WITH CARE AND ASSESSMENT. NO AGGRESSIONS. NO PARANOIA OR HALLUCINATIONS. REDIRECT AND REORIENT NEEDED. EATING AT THIS TIME. CONTINUE PLAN OF CARE.
--- NOTE | 2020-07-25 19:36 | NUR ---
pt speaking with family on phone stating she has not eaten, the shower is cold, she cant walk and has not obtained physical therapy. pt is confused and disoriented.
[2020-07-25 21:28] VITALS: BP 160/72
--- NOTE | 2020-07-25 21:41 | NUR ---
RECEIVED PATIENT IN DAYROOM SITTING ON COUCH, SHE IS NOT CONVERSATING WITH ANYONE, SHE NORMALLY DOES NOT (MINIMALLY) SHE IS CONFUSED, SHE DOES NOT REALIZE THAT SHE IS IN A HOSPITAL, SHE THINKS THAT SHE IS WAITING ON HER TO COME AND GET HER SHE ALSO THOUGHT THIS LAST NIGHT WELL. SHE IS COMPLIANT WITH MEDS. SHE CAN MAKE HER NEEDS KNOWN. WILL FOLLOW POC
[2020-07-26 08:53] VITALS: BP 159/87
--- NOTE | 2020-07-26 12:00 | NUR ---
RECEIVED IN HALLWAY OUTSIDE OF NURSES STATION. CALM AND COOPERATIVE WITH CARE AND ASSESSMENT. RESTLESS, ANXIOUS, AND CRIES AT TIMES. NO PARANOIA. NO AGGRESSION. REDIRECT AND REORIENT NEEDED. EATING AT THIS TIME. CONTINUE PLAN OF CARE.
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
[2020-07-26 20:03] VITALS: BP 171/75
--- NOTE | 2020-07-26 21:38 | NUR ---
RECEIVED IN DAYROOM. SITTING IN A CHAIR WITH PEERS AT HER SIDE. CALM AND COOPERATIVE WITH CARE AND ASSESSMENT. NO SIGNS OF AGGRESSION OR PARANOIA AT THIS TIME. REDIRECT AND REORIENT NEEDED. RESTING IN BED WITH EYES CLOSED AT THIS TIME. CONTINUE PLAN OF CARE.
[2020-07-27 08:49] VITALS: BP 156/58
--- NOTE | 2020-07-27 09:11 | NUR ---
PT IS AWAKE AND ALERT TO PERSON ONLY. CALM AND COOPERATIVE WITH ASSESSMENT. PT IS RESTLESS, CRIES AT TIMES, AND WANDERS AROUND IN W/C LOST AT TIMES. PT CAN BECOME VERY COMBATIVE WITH STAFF. HARD TO REDIRECT AT TIMES. REDIRECT AND REORIENT NEEDED. FALL PRECAUTIONS IN PLACE. WILL CPOC.
--- NOTE | 2020-07-27 09:13 | PN ---
PATIENT:TIGIST BEE MEDICAL RECORD: [id number] LOCATION:[facility] ADMISSION DATE: 07/01/20 PROGRESS NOTE DATE OF SERVICE: 07/23/2020 SUBJECTIVE: The patient's case was discussed with staff. She has no new complaint. OBJECTIVE: The patient's paperwork has finally been completed and she will be transitioned out of the hospital tomorrow. TRANSINT:[id number] Voice Confirmation ID: [id number] DOCUMENT ID: [id number] TAMI MANJARREZ MD at 0913 CC: [id number] DICTATION DATE: 07/23/20 1644 HEAD OF MEASUREMENT & INSIGHTS: 07/23/20 1843 ADM IN [place] [id number] [place] [id number]
--- NOTE | 2020-07-27 20:18 | NUR ---
RECEIVED IN DAYROOM. SITTING IN A CHAIR WITH PEERS AT HER SIDE. CALM AND COOPERATIVE WITH CARE AND ASSESSMENT. NO SIGNS OF AGGRESSION OR PARANOIA. REDIRECT AND REORIENT NEEDED. CONTINUES TO SIT CALMLY IN DAYROOM. CONTINUE PLAN OF CARE.
[2020-07-27 20:28] VITALS: BP 128/69
[2020-07-28 09:17] VITALS: BP 181/71
--- NOTE | 2020-07-28 12:00 | NUR ---
RECEIVED IN HALLWAY OUTSIDE OF NURSES STATION. PLEASANT. SOCIALIZING WITH OTHER PATIENTS. CALM AND COOPERATIVE WITH CARE AND ASSESSMENT. NO AGGRESSION. REDIRECT AND REORIENT NEEDED. EATING AT THIS TIME. CONTINUE PLAN OF CARE.
[2020-07-28 19:53] VITALS: BP 146/69
--- NOTE | 2020-07-28 22:28 | NUR ---
RECEIVED IN DAYROOM. SITTING IN A CHAIR WITH PEERS AT HER SIDE. CALM AND COOPERATIVE WITH CARE AND ASSESSMENT. NO SIGNS OF AGGRESSION OR PARANOIA. REDIRECT AND REORIENT NEEDED. RESTING IN BED WITH EYES CLOSED AT THIS TIME. CONTINUE PLAN OF CARE.
--- NOTE | 2020-07-29 08:22 | PN ---
PATIENT:TIGIST BEE MEDICAL RECORD: [id number] LOCATION:[facility] ADMISSION DATE: 07/01/20 PROGRESS NOTE DATE OF SERVICE: 07/28/2020 SUBJECTIVE: The patient's case was discussed with staff. She has no new complaint. OBJECTIVE: The patient denies intent to harm herself or others. She is in good behavioral control. ASSESSMENT: Vascular dementia. PLAN: The patient can be transitioned out of the hospital as soon as placement is arranged. NTS:[id number] Voice Confirmation ID: [id number] DOCUMENT ID: [id number] TAMI MANJARREZ MD at 0822 CC: [id number] DICTATION DATE: 07/28/20 1703 BIT WELDER: 07/29/20 0112 ADM IN [place] [id number] [place] [address]
[2020-07-29 09:15] VITALS: BP 153/68
--- NOTE | 2020-07-29 09:40 | NUR ---
PT D/C TO [facility] VIA FACILITY VAN WITH TRANSPORT OB/GYN NURSE. PAPER COPY SENT WITH PT. ALL BELONGINGS AND W/C WITH LEGS SENT WITH PT AT THIS TIME. PT TRANSFERRED TO W/C AT TIME. PT PLESANT AT TIME OF D/C.
--- NOTE | 2020-07-29 10:12 | NUR ---
THIS NURSE CALLED REPORT INTO [facility] TO [place]. NURSE ATTEMPTED TO CALL [facility] AT 0913 UNABLE TO GET AHOLD OF ANYONE. PT GAVE UPDATE ON PT BEHAVIORS, HOW SHE HAS BEEN DOING TODAY, UP TO DATE SET OF VITALS, LAST BM AND NIGHT BEHAVIORS. NURSE FAXED PAPERWORK TO [facility] AND SENT PAPER COPY WITH PT. NEGATIVE COVID RESULTS SENT TO FACILITY VIA FAX AND PAPERWORK.
== END 2020-07-29 13:55 | DRG 884 ==
LOC: D.PSYCH 21:30
PROVIDERS: Family Medicine; ADMIT Psychiatry & Neurology Psychiatry; ATTEND Psychiatry & Neurology Psychiatry
DX: F01.51 Vascular dementia, unspecified severity, with behavioral disturbance (principal); I48.20 Chronic atrial fibrillation, unspecified; N39.0 Urinary tract infection, site not specified; R26.9 Unspecified abnormalities of gait and mobility; I10 Essential (primary) hypertension; E11.40 Type 2 diabetes mellitus with diabetic neuropathy, unspecified; Z66 Do not resuscitate; Z79.4 Long term (current) use of insulin; E78.5 Hyperlipidemia, unspecified; K21.9 Gastro-esophageal reflux disease without esophagitis; D51.9 Vitamin B12 deficiency anemia, unspecified; E55.9 Vitamin D deficiency, unspecified; E03.9 Hypothyroidism, unspecified; K59.00 Constipation, unspecified; M48.02 Spinal stenosis, cervical region; E78.00 Pure hypercholesterolemia, unspecified; M19.90 Unspecified osteoarthritis, unspecified site; G89.29 Other chronic pain; J02.9 Acute pharyngitis, unspecified; R11.0 Nausea; D72.829 Elevated white blood cell count, unspecified; B37.3 Candidiasis of vulva and vagina; H60.90 Unspecified otitis externa, unspecified ear; Z86.73 Personal history of transient ischemic attack (TIA), and cerebral infarction without residual deficits